=== PATIENT | female | born 1945 | race Caucasian/White ===

== ENCOUNTER 2018-05-24 10:00 | Inpatient (IN) ==
[~2018-05-24 10:00] MED LIST: DEXTROSE 50% 25 GM/50 ML SYRINGE IV PRN; GLUCAGON 1 MG VIAL IM PRN; oxyCODONE/ACETAMINOPHEN 5-325 MG TABLET PO PRN
[2018-05-24] MEDS: ALBUTEROL 2.5 MG/3 ML NEB RESP TX SCH ×3 (15:31→19:08)
[2018-05-24] MEDS: MECLIZINE 25 MG TABLET PO SCH ×2 (16:11→21:32)
[2018-05-24] MEDS: ASPIRIN EC 81 MG TABLET PO SCH (16:11)
[2018-05-24] MEDS: ATORVASTATIN 10 MG TABLET PO SCH (16:13)
[2018-05-24] MEDS: METOPROLOL SUCCINATE XL 50 MG TABLET PO SCH (16:13)
[2018-05-24] MEDS: DILTIAZEM CD 300 MG CAPSULE PO SCH (16:13)
[2018-05-25] MEDS: ALBUTEROL 2.5 MG/3 ML NEB RESP TX SCH ×4 (00:20→20:10)
[2018-05-25 04:19] LABS: ABG Base Excess 6.7 MMOL/L (-2.5-2.5); ABG HCO3 30.5 MMOL/L (20-26); ABG Oxygen Saturation 98.4 % (95-100); ABG PCO2 38.7 MM HG (35-48); ABG PH 7.502 (7.35-7.45); ABG TCO2 27.2 MMOL/L (23-27); Allen Test Positive
[2018-05-25 05:14] LABS: INR 1.1; PT Patient Result 11.4 SECS
[2018-05-25 05:17] LABS: Basophils % 0.1 % (0.0-0.8); Eosinophils # 0.3 10*3/uL (0.0-0.87); Eosinophils % 3.2 % (0.00-10.9); Hematocrit 32.4 VOL% (35.7-47.0); Immature Granulocytes % 0.6 %; Immature Granulocytes Absolute 0.05 #; Lymphocytes # 0.9 10*3/uL (1.4-4.0); Lymphocytes % 10.2 % (21.3-54.2); Mean Corpuscular HGB Conc 30.9 GM/DL (32-36); Mean Corpuscular Hemoglobin 29 PG (27-34); Mean Corpuscular Volume 95.3 FL (87-102); Mean Platelet Volume 11.3 FL (9.6-12.0); Monocytes % 11.9 % (1.7-12.7); Neutrophils # 6.3 10*3/uL (1.4-7.4); Platelet Count 201 T/CUMM (130-400); Red Cell Distribution Width 16.6 % (9.3-17.3); White Blood Count 8.5 T/CUMM (4-12)
[2018-05-25 05:32] LABS: Albumin 2.8 G/DL (3.4-5.0); Bilirubin,Direct 0.68 MG/DL (0.0-0.20); Bilirubin,Total 1.7 MG/DL (0.2-1.0); Total Protein 6.4 G/DL (6.4-8.3)
[2018-05-25 05:37] LABS: Albumin 2.5 G/DL (3.4-5.0); Bilirubin,Total 1.4 MG/DL (0.2-1.0); Calcium 8.3 MG/DL (8.5-10.1); Osmolality,Calculated 307.1 MOS/KG (273-304); Potassium 3.1 MMOL/L (3.5-5.1); Total Protein 6.4 G/DL (6.4-8.3)
[2018-05-25 05:38] LABS: Free T4 (Free Thyroxine) 1.08 NG/DL (0.76-1.46); Thyroid Stimulating Hormone 4.34 uIU/ml (0.358-3.74)
[2018-05-25] MEDS: ATORVASTATIN 10 MG TABLET PO SCH (08:58)
[2018-05-25] MEDS: DILTIAZEM CD 300 MG CAPSULE PO SCH (08:59)
[2018-05-25] MEDS: METOPROLOL SUCCINATE XL 50 MG TABLET PO SCH (08:59)
[2018-05-25] MEDS: ASPIRIN EC 81 MG TABLET PO SCH (08:59)
[2018-05-25] MEDS: MECLIZINE 25 MG TABLET PO SCH ×3 (09:05→22:10)
[2018-05-25] MEDS: METOPROLOL TARTRATE 100 MG TABLET PO SCH ×2 (10:08→22:10)
[2018-05-25] MEDS: POTASSIUM CHLORIDE RIDER 10 MEQ in PREMIX 1 EACH IV PRN ×2 (14:54→18:32)
[2018-05-26] MEDS: ALBUTEROL 2.5 MG/3 ML NEB RESP TX SCH ×4 (02:02→19:25)
[2018-05-26 04:57] LABS: Blood Urea Nitrogen 69 MG/DL (7-18); Calcium 8.1 MG/DL (8.5-10.1); Glucose 92 MG/DL (74-106); Osmolality,Calculated 305.8 MOS/KG (273-304); Potassium 3.2 MMOL/L (3.5-5.1); Sodium 144 MMOL/L (136-145)
[2018-05-26 04:59] LABS: Troponin I 0.101 NG/ML (0.00-0.045)
[2018-05-26] MEDS: POTASSIUM CHLORIDE RIDER 10 MEQ in PREMIX 1 EACH IV PRN (06:11)
[2018-05-26] MEDS ORDERED: POTASSIUM CHLORIDE 20 MEQ TABLET PO ONE (08:57)
[2018-05-26] MEDS: MECLIZINE 25 MG TABLET PO SCH ×3 (10:01→20:55)
[2018-05-26] MEDS: DILTIAZEM CD 300 MG CAPSULE PO SCH (10:02)
[2018-05-26] MEDS: ASPIRIN EC 81 MG TABLET PO SCH (10:03)
[2018-05-26] MEDS: METOPROLOL TARTRATE 100 MG TABLET PO SCH ×2 (10:04→20:55)
[2018-05-26] MEDS: ATORVASTATIN 10 MG TABLET PO SCH (10:04)
[2018-05-26] MEDS: CHLORHEXIDINE 0.12% ORAL RINSE 60 ML BOTTLE SWISH/SPIT SCH ×2 (14:31→20:55)
[2018-05-26] MEDS ORDERED: CHLORHEXIDINE 4% SOLN 118 ML BOTTLE TOP SCH (15:00)
[2018-05-27] MEDS: ALBUTEROL 2.5 MG/3 ML NEB RESP TX SCH ×4 (01:00→19:20)
[2018-05-27 05:29] LABS: Osmolality,Calculated 300.8 MOS/KG (273-304); Potassium 3.5 MMOL/L (3.5-5.1)
[2018-05-27] MEDS ORDERED: CEFUROXIME INJ 1,500 MG in SYRINGE 1 EACH IV ONE (06:00)
[2018-05-27 08:06] LABS: Basophils % 0.2 % (0.0-0.8); Eosinophils # 0.2 10*3/uL (0.0-0.87); Hematocrit 33.8 VOL% (35.7-47.0); Hemoglobin 10.5 GM/DL (12.0-16.0); Immature Granulocytes % 0.3 %; Immature Granulocytes Absolute 0.02 #; Lymphocytes % 16.1 % (21.3-54.2); Mean Corpuscular HGB Conc 31.1 GM/DL (32-36); Mean Corpuscular Hemoglobin 30 PG (27-34); Mean Corpuscular Volume 95.8 FL (87-102); Mean Platelet Volume 11.1 FL (9.6-12.0); Monocytes # 0.8 10*3/uL (0.11-0.8); Monocytes % 12.5 % (1.7-12.7); Neutrophils # 4.3 10*3/uL (1.4-7.4); Neutrophils % 67.9 % (38.7-73.9); Platelet Count 229 T/CUMM (130-400); Red Blood Count 3.53 MC/CUMM (3.8-5.5); Red Cell Distribution Width 16.3 % (9.3-17.3); White Blood Count 6.3 T/CUMM (4-12)
[2018-05-27] MEDS ORDERED: ATORVASTATIN 40 MG TABLET PO SCH (09:17)
[2018-05-27] MEDS: MECLIZINE 25 MG TABLET PO SCH ×3 (09:53→21:25)
[2018-05-27] MEDS: METOPROLOL TARTRATE 100 MG TABLET PO SCH ×2 (09:54→21:25)
[2018-05-27] MEDS: DILTIAZEM CD 300 MG CAPSULE PO SCH (09:55)
[2018-05-27] MEDS: ASPIRIN EC 81 MG TABLET PO SCH (09:56)
[2018-05-27] MEDS: CHLORHEXIDINE 0.12% ORAL RINSE 60 ML BOTTLE SWISH/SPIT SCH ×2 (09:57→21:26)
[2018-05-27] MEDS: ISOSORBIDE MONONITRATE 30 MG TABLET PO SCH (10:14)
[2018-05-27] MEDS ORDERED: ATORVASTATIN 10 MG TABLET PO SCH (10:24)
[2018-05-27 10:49] LABS: Albumin 2.6 G/DL (3.4-5.0); Bilirubin,Direct 0.69 MG/DL (0.0-0.20); Bilirubin,Indirect 0.5 MG/DL (0.0-1.0); Bilirubin,Total 1.2 MG/DL (0.2-1.0); Total Protein 6.5 G/DL (6.4-8.3)
[2018-05-27] MEDS: ATORVASTATIN 10 MG TABLET PO SCH (10:50)
[2018-05-27] MEDS: CHLORHEXIDINE 4% SOLN 118 ML BOTTLE TOP SCH ×2 (13:15→21:25)
[2018-05-28] MEDS: ALBUTEROL 2.5 MG/3 ML NEB RESP TX SCH ×2 (01:03→07:46)
[2018-05-28 04:34] LABS: Eosinophils # 0.2 10*3/uL (0.0-0.87); Hematocrit 31.1 VOL% (35.7-47.0); Hemoglobin 9.6 GM/DL (12.0-16.0); Immature Granulocytes % 0.2 %; Immature Granulocytes Absolute 0.01 #; Lymphocytes # 0.9 10*3/uL (1.4-4.0); Lymphocytes % 14.2 % (21.3-54.2); Mean Corpuscular HGB Conc 30.9 GM/DL (32-36); Mean Corpuscular Hemoglobin 30 PG (27-34); Mean Platelet Volume 10.8 FL (9.6-12.0); Monocytes # 0.7 10*3/uL (0.11-0.8); Monocytes % 10.9 % (1.7-12.7); Neutrophils # 4.5 10*3/uL (1.4-7.4); Neutrophils % 71.7 % (38.7-73.9); Platelet Count 231 T/CUMM (130-400); Red Blood Count 3.24 MC/CUMM (3.8-5.5); Red Cell Distribution Width 16.1 % (9.3-17.3); White Blood Count 6.3 T/CUMM (4-12)
[2018-05-28] MEDS ORDERED: PAPAVERINE 60 MG/2 ML VIAL ONE (04:51)
[2018-05-28] MEDS ORDERED: VANCOMYCIN 1,000 MG VIAL ONE (04:51)
[2018-05-28 05:02] LABS: Calcium 7.9 MG/DL (8.5-10.1); Potassium 3.1 MMOL/L (3.5-5.1)
[2018-05-28] MEDS ORDERED: FAMOTIDINE 20 MG TABLET PO ONE (05:40)
[2018-05-28] MEDS ORDERED: SUFentanil 250 MCG/5 ML AMP ONE (05:52)
[2018-05-28] MEDS ORDERED: MIDAZOLAM 10 MG/2 ML VIAL ONE (05:52)
[2018-05-28] MEDS ORDERED: SODIUM CHLORIDE 0.9% 1,000 ML IV SCH (06:00)
[2018-05-28] MEDS ORDERED: ceFAZolin 1,000 MG in SYRINGE 1 EACH IV ONE (06:00)
[2018-05-28] MEDS: DILTIAZEM CD 300 MG CAPSULE PO SCH ×2 (06:02→09:00)
[2018-05-28] MEDS: ISOSORBIDE MONONITRATE 30 MG TABLET PO SCH ×2 (06:02→09:00)
[2018-05-28] MEDS: METOPROLOL TARTRATE 100 MG TABLET PO SCH ×2 (06:03→09:00)
[2018-05-28] MEDS: CHLORHEXIDINE 4% SOLN 118 ML BOTTLE TOP SCH ×2 (06:03→09:00)
[2018-05-28] MEDS ORDERED: ATORVASTATIN 40 MG TABLET PO SCH (07:32)
[2018-05-28 07:45] LABS: ABG Base Excess 3.9 MMOL/L (-2.5-2.5); ABG HCO3 27.3 MMOL/L (20-26); ABG Oxygen Saturation 99.2 % (95-100); ABG PCO2 36.4 MM HG (35-48); ABG PH 7.493 (7.35-7.45); ABG PO2 474.4 MM HG (80-95); ABG TCO2 28.4 MMOL/L (23-27); Glucose Heart Surgery 78 MG/DL (74-106); Hemoglobin Heart Surgery 9.8 G/DL (12.0-16.0); Ionized Calcium Arterial 1.03 MMOL/L (1.21-1.46); PCO2 Patient Temp Arterial 36.4 MMHG; PH Patient Temp Arterial 7.493; PO2 Patient Temp Arterial 474.4 MM HG; Patient Temperature 37 CELCIUS; Potassium Heart/CVR 2.7 MMOL/L (3.5-5.1); Sodium Heart/CVR 142 MMOL/L (135-145)
[2018-05-28 08:27] LABS: Apearance,Urine CLEAR (Clear); Bilirubin,Urine Negative (Negative); Blood, Urine Negative (Negative); Glucose,Urine (UA) Negative (Negative); Ketones,Urine Negative (Negative); Mucus,Urine Occasional /LPF (Occasional); Nitrite,Urine Negative (Negative); Protein,Urine Negative; RBC,Urine 1 /HPF (0-4); Squamous Epithelial Cell,Urine Occasional /HPF (0-10); Urine Color Yellow (Yellow); Urine Urobilinogen < 2.0 EU/DL (0.2-1.0); WBC,Urine 1 /HPF (0-6)
[2018-05-28] MEDS: ASPIRIN EC 81 MG TABLET PO SCH (09:00)
[2018-05-28] MEDS: CHLORHEXIDINE 0.12% ORAL RINSE 60 ML BOTTLE SWISH/SPIT SCH ×2 (09:00→21:13)
[2018-05-28] MEDS: MECLIZINE 25 MG TABLET PO SCH (09:00)
[2018-05-28 09:18] LABS: Hematocrit Heart Surgery 18.9 PERCENT (37-47); PCO2 Patient Temp Venous 29.5 MM HG; PH Patient Temp Venous 7.56; PO2 Patient Temp Venous 42.6 MM HG; Potassium Heart/CVR 3.9 MMOL/L (3.5-5.1); VBG Base Excess 4.3 MEQ/L (0-4); VBG HCO3 28.2 MEQ/L (24-28); VBG Oxygen Saturation 90.3 %; VBG PCO2 34.1 MMHG (41-51); VBG PH 7.514; VBG PO2 52.1 MMHG (17-40)
[2018-05-28] MEDS ORDERED: HEPARIN/NACL 0.9% 2 UNITS/ML 500 ML IV ONE (09:28)
[2018-05-28] MEDS ORDERED: SODIUM BICARBONATE 50 MEQ/50 ML VIAL IV ONE ×2 (09:30→10:51)
[2018-05-28] MEDS ORDERED: CALCIUM CHLORIDE 1,000 MG/10 ML SYRINGE IV ONE (09:30)
[2018-05-28] MEDS ORDERED: NITROPRUSSIDE 50 MG/2 ML VIAL ONE (09:30)
[2018-05-28] MEDS ORDERED: PHENYLEPHRINE DRIP 40 MG/250 ML PREMIX IV ONE (09:30)
[2018-05-28] MEDS ORDERED: POTASSIUM CHLORIDE RIDER 100 ML IV ONE (09:31)
[2018-05-28 09:58] LABS: Hematocrit Heart Surgery 18.7 PERCENT (37-47); Hemoglobin Heart Surgery 5.9 G/DL (12.0-16.0); PCO2 Patient Temp Venous 28.3 MM HG; PH Patient Temp Venous 7.582; PO2 Patient Temp Venous 40.5 MM HG; Potassium Heart/CVR 3.8 MMOL/L (3.5-5.1); VBG Base Excess 4.8 MEQ/L (0-4); VBG HCO3 28.7 MEQ/L (24-28); VBG Oxygen Saturation 89.4 %; VBG PCO2 32.7 MMHG (41-51); VBG PH 7.536; VBG PO2 49.5 MMHG (17-40)
[2018-05-28 10:15] LABS: Hematocrit Heart Surgery 21.5 PERCENT (37-47); Hemoglobin Heart Surgery 6.9 G/DL (12.0-16.0); PCO2 Patient Temp Venous 36.4 MM HG; PH Patient Temp Venous 7.486; PO2 Patient Temp Venous 39.7 MM HG; VBG Base Excess 3.9 MEQ/L (0-4); VBG HCO3 27.7 MEQ/L (24-28); VBG Oxygen Saturation 78.9 %; VBG PCO2 36.4 MMHG (41-51); VBG PH 7.486; VBG PO2 39.7 MMHG (17-40)
[2018-05-28] MEDS ORDERED: ALBUMIN 25% 25 GM/100 ML VIAL IV ONE (10:49)
[2018-05-28] MEDS ORDERED: PROTAMINE SULFATE 250 MG/25 ML VIAL IV ONE (10:51)
[2018-05-28] MEDS ORDERED: MANNITOL 100 GM/500 ML BAG IV ONE (10:51)
[2018-05-28] MEDS ORDERED: DEXTROSE 5% KCL 20 MEQ 20 MEQ/1,000 ML BAG IV ONE (10:51)
[2018-05-28] MEDS ORDERED: MAGNESIUM SULFATE 10 GM/20 ML VIAL IV ONE (10:51)
[2018-05-28] MEDS ORDERED: methylPREDNISolone SOD SUC 1,000 MG/8 ML VIAL ONE (10:52)
[2018-05-28] MEDS ORDERED: HEPARIN 10,000 UNIT/10 ML VIAL ONE (10:52)
[2018-05-28] MEDS ORDERED: FUROSEMIDE 20 MG/2 ML VIAL ONE (10:52)
[2018-05-28] MEDS ORDERED: POTASSIUM CHLORIDE 20 MEQ/10 ML VIAL ONE (10:53)
[2018-05-28 11:03] LABS: ABG Base Excess 0.5 MMOL/L (-2.5-2.5); ABG HCO3 24.9 MMOL/L (20-26); ABG Oxygen Saturation 99.4 % (95-100); ABG PCO2 40.5 MM HG (35-48); ABG PH 7.402 (7.35-7.45); ABG TCO2 23.6 MMOL/L (23-27); Glucose Heart Surgery 171 MG/DL (74-106); Hemoglobin Heart Surgery 7.7 G/DL (12.0-16.0); Ionized Calcium Arterial 1.23 MMOL/L (1.21-1.46); PCO2 Patient Temp Arterial 40.5 MMHG; PH Patient Temp Arterial 7.402; Patient Temperature 37 CELCIUS; Potassium Heart/CVR 3.6 MMOL/L (3.5-5.1); Sodium Heart/CVR 138 MMOL/L (135-145)
[2018-05-28] MEDS ORDERED: AMIODARONE 450 MG/9 ML VIAL IV ONE (11:24)
[2018-05-28] MEDS ORDERED: DOBUTamine 500 MG/250 ML PREMIX IV ONE ×2 (11:24→11:57)
[2018-05-28] MEDS ORDERED: DOBUTamine 500 MG/250 ML PREMIX IV PRN (11:45)
[2018-05-28] MEDS: SODIUM CHLORIDE 0.45% 1,000 ML IV SCH ×2 (11:45)
[2018-05-28] MEDS ORDERED: MORPHINE 4 MG/1 ML VIAL IV PRN (11:57)
[2018-05-28] MEDS ORDERED: MIDAZOLAM 2 MG/2 ML VIAL ONE ×2 (11:57)
[2018-05-28] MEDS ORDERED: INSULIN REGULAR 100 UNIT/ML IV ONE (11:57)
[2018-05-28] MEDS ORDERED: MIDAZOLAM 2 MG/2 ML VIAL IV PRN (11:57)
[2018-05-28] MEDS ORDERED: MAGNESIUM SULF RIDER 4 GM in PREMIX 1 EACH IV PRN (11:57)
[2018-05-28] MEDS ORDERED: ONDANSETRON 4 MG/2 ML VIAL IV PRN (11:57)
[2018-05-28] MEDS ORDERED: CALCIUM CHLORIDE 1,000 MG/10 ML SYRINGE IV PRN (11:57)
[2018-05-28] MEDS ORDERED: LACTATED RINGERS 250 ML IV PRN (11:57)
[2018-05-28] MEDS ORDERED: MAGNESIUM SULF RIDER 2 GM in PREMIX 1 EACH IV PRN (11:57)
[2018-05-28] MEDS ORDERED: PHENYLEPHRINE DRIP 40 MG/250 ML PREMIX IV PRN (11:57)
[2018-05-28] MEDS ORDERED: ACETAMINOPHEN 650 MG SUPP RECTAL PRN (11:57)
[2018-05-28] MEDS ORDERED: INSULIN REGULAR 100 UNIT/ML IV PRN (11:57)
[2018-05-28] MEDS ORDERED: VECURONIUM 10 MG VIAL IV PRN ×2 (11:57)
[2018-05-28] MEDS ORDERED: NITROPRUSSIDE 100 MG in DEXTROSE 5% 250 ML IV PRN (11:57)
[2018-05-28] MEDS ORDERED: SEVOFLURANE 1 UNIT/15 MINUTE INH ONE (11:57)
[2018-05-28] MEDS ORDERED: CALCIUM CHLORIDE 1,000 MG/10 ML VIAL IV ONE (11:57)
[2018-05-28] MEDS ORDERED: MIDAZOLAM 10 MG/2 ML VIAL IV PRN (11:57)
[2018-05-28] MEDS ORDERED: MORPHINE 10 MG/1 ML VIAL IV PRN (11:57)
[2018-05-28] MEDS ORDERED: DEXTROSE 50% 25 GM/50 ML SYRINGE IV PRN ×2 (11:57)
[2018-05-28] MEDS ORDERED: VECURONIUM 10 MG VIAL IV ONE (11:58)
[2018-05-28] MEDS ORDERED: ETOMIDATE 40 MG/20 ML VIAL IV ONE (11:58)
[2018-05-28] MEDS ORDERED: PHENYLEPHRINE 10 MG/1 ML VIAL IV ONE (11:58)
[2018-05-28] MEDS ORDERED: AMIODARONE 150 MG/3 ML VIAL ONE (11:58)
[2018-05-28] MEDS ORDERED: AMINOCAPROIC ACID 5,000 MG/20 ML VIAL ONE (11:58)
[2018-05-28 12:00] LABS: ABG Base Excess -0.2 MMOL/L (-2.5-2.5); ABG HCO3 24.3 MMOL/L (20-26); ABG Oxygen Saturation 99.5 % (95-100); ABG PCO2 34.5 MM HG (35-48); ABG PH 7.442 (7.35-7.45); ABG TCO2 21.8 MMOL/L (23-27); Glucose Heart Surgery 153 MG/DL (74-106); Hematocrit Heart Surgery 26.4 PERCENT (37-47); Hemoglobin Heart Surgery 8.5 G/DL (12.0-16.0); Potassium Heart/CVR 3.9 MMOL/L (3.5-5.1)
[2018-05-28 12:10] LABS: Eosinophils # 0.1 10*3/uL (0.0-0.87); Hematocrit 25.8 VOL% (35.7-47.0); Hemoglobin 8.2 GM/DL (12.0-16.0); Immature Granulocytes % 0.9 %; Immature Granulocytes Absolute 0.09 #; Lymphocytes # 0.7 10*3/uL (1.4-4.0); Lymphocytes % 6.5 % (21.3-54.2); Mean Corpuscular HGB Conc 31.8 GM/DL (32-36); Mean Corpuscular Hemoglobin 30 PG (27-34); Mean Corpuscular Volume 94.9 FL (87-102); Mean Platelet Volume 10.9 FL (9.6-12.0); Monocytes # 0.8 10*3/uL (0.11-0.8); Monocytes % 7.9 % (1.7-12.7); Neutrophils # 8.5 10*3/uL (1.4-7.4); Neutrophils % 83.7 % (38.7-73.9); Platelet Count 201 T/CUMM (130-400); Red Blood Count 2.72 MC/CUMM (3.8-5.5); Red Cell Distribution Width 15.9 % (9.3-17.3); White Blood Count 10.1 T/CUMM (4-12)
[2018-05-28] MEDS: POTASSIUM CHLORIDE RIDER 20 MEQ in PREMIX 1 EACH IV PRN ×3 (12:10→18:21)
[2018-05-28 12:18] LABS: Albumin 2.7 G/DL (3.4-5.0); Bilirubin,Total 1.6 MG/DL (0.2-1.0); Calcium 7.9 MG/DL (8.5-10.1); Osmolality,Calculated 295.1 MOS/KG (273-304); Total Protein 5.3 G/DL (6.4-8.3)
[2018-05-28 12:24] LABS: INR 1.3
[2018-05-28 12:34] LABS: CKMB % 10.4 %
[2018-05-28 12:38] LABS: Troponin I 4.78 NG/ML (0.00-0.045)
[2018-05-28] MEDS ORDERED: AMIODARONE INJ 100 MG in DEXTROSE 5% 100 ML IV ONE (12:57)
[2018-05-28] MEDS ORDERED: AMIODARONE INJ 450 MG in DEXTROSE 5% 241 ML IV SCH (13:15)
[2018-05-28] MEDS: ceFAZolin 1,000 MG in SYRINGE 1 EACH IV SCH ×2 (14:15→20:52)
[2018-05-28 15:07] LABS: ABG Base Excess 0.6 MMOL/L (-2.5-2.5); ABG HCO3 24.9 MMOL/L (20-26); ABG Oxygen Saturation 99.4 % (95-100); ABG PCO2 32.1 MM HG (35-48); ABG PH 7.472 (7.35-7.45); ABG TCO2 20.7 MMOL/L (23-27); Glucose Heart Surgery 173 MG/DL (74-106); Hematocrit Heart Surgery 36.7 PERCENT (37-47); Hemoglobin Heart Surgery 11.9 G/DL (12.0-16.0); Potassium Heart/CVR 3.8 MMOL/L (3.5-5.1)
[2018-05-28] MEDS: INSULIN REGULAR DRIP 100 ML IV SCH (15:13)
[2018-05-28] MEDS: ALBUMIN 5% 12.5 GM in PREMIX 1 EACH IV PRN ×4 (15:55→17:26)
[2018-05-28] MEDS ORDERED: NITROGLYCERIN DRIP 50 MG/250 ML BOTTLE IV PRN (16:57)
[2018-05-28 18:14] LABS: ABG Base Excess -1.4 MMOL/L (-2.5-2.5); ABG HCO3 23.3 MMOL/L (20-26); ABG Oxygen Saturation 99.4 % (95-100); ABG PCO2 36.6 MM HG (35-48); ABG PH 7.406 (7.35-7.45); ABG TCO2 21.1 MMOL/L (23-27); Glucose Heart Surgery 116 MG/DL (74-106); Potassium Heart/CVR 3.9 MMOL/L (3.5-5.1)
[2018-05-28] MEDS: POTASSIUM CHLORIDE RIDER 10 MEQ in PREMIX 1 EACH IV PRN (18:54)
[2018-05-28] MEDS ORDERED: FUROSEMIDE 40 MG/4 ML VIAL ONE (20:31)
[2018-05-28] MEDS ORDERED: FUROSEMIDE 40 MG/4 ML VIAL IV ONE (20:33)
[2018-05-28] MEDS ORDERED: FUROSEMIDE 40 MG/4 ML VIAL IV PRN (20:35)
[2018-05-28 21:06] LABS: ABG Base Excess -2.3 MMOL/L (-2.5-2.5); ABG HCO3 22.1 MMOL/L (20-26); ABG Oxygen Saturation 98.3 % (95-100); ABG PCO2 36.2 MM HG (35-48); ABG PH 7.403 (7.35-7.45); ABG PO2 152.4 MM HG (80-95); ABG TCO2 23.2 MMOL/L (23-27); Glucose Heart Surgery 130 MG/DL (74-106); Hemoglobin Heart Surgery 10.3 G/DL (12.0-16.0); Potassium Heart/CVR 4.6 MMOL/L (3.5-5.1)
[2018-05-28 21:26] LABS: CKMB % 9.9 %
[2018-05-29] MEDS: ceFAZolin 1,000 MG in SYRINGE 1 EACH IV SCH ×5 (02:14→21:49)
[2018-05-29 04:28] LABS: ABG Base Excess -2.4 MMOL/L (-2.5-2.5); ABG HCO3 22.4 MMOL/L (20-26); ABG PCO2 33.3 MM HG (35-48); ABG PH 7.417 (7.35-7.45); ABG TCO2 19.3 MMOL/L (23-27); Glucose Heart Surgery 135 MG/DL (74-106); Potassium Heart/CVR 3.9 MMOL/L (3.5-5.1)
[2018-05-29 04:29] LABS: Hematocrit Heart Surgery 33.2 PERCENT (37-47); Hemoglobin Heart Surgery 10.8 G/DL (12.0-16.0)
[2018-05-29 04:49] LABS: Basophils % 0.1 % (0.0-0.8); Hematocrit 32.8 VOL% (35.7-47.0); Hemoglobin 10.3 GM/DL (12.0-16.0); Immature Granulocytes % 0.8 %; Lymphocytes # 0.3 10*3/uL (1.4-4.0); Lymphocytes % 2.8 % (21.3-54.2); Mean Corpuscular HGB Conc 31.4 GM/DL (32-36); Mean Corpuscular Hemoglobin 30 PG (27-34); Mean Corpuscular Volume 94.3 FL (87-102); Mean Platelet Volume 11.1 FL (9.6-12.0); Monocytes # 0.5 10*3/uL (0.11-0.8); Monocytes % 4.2 % (1.7-12.7); Neutrophils % 92.1 % (38.7-73.9); Platelet Count 138 T/CUMM (130-400); Red Blood Count 3.48 MC/CUMM (3.8-5.5); Red Cell Distribution Width 16.3 % (9.3-17.3); White Blood Count 11.9 T/CUMM (4-12)
[2018-05-29] MEDS: POTASSIUM CHLORIDE RIDER 20 MEQ in PREMIX 1 EACH IV PRN (04:55)
[2018-05-29 05:09] LABS: Albumin 3.2 G/DL (3.4-5.0); Bilirubin,Direct 1.47 MG/DL (0.0-0.20); Bilirubin,Total 2.3 MG/DL (0.2-1.0); CKMB % 9.6 %; Calcium 8.1 MG/DL (8.5-10.1)
[2018-05-29 05:11] LABS: Troponin I 12.5 NG/ML (0.00-0.045)
[2018-05-29 05:16] LABS: Band Neutrophils 1 % (0-10); Hypochromasia 1+; Lymphocytes 1 % (20-55); Ovalocytes Slight; Platelet Estimate Normal; Segmented Neutrophils 96 % (50-85); Total Cells Counted 100
[2018-05-29] MEDS: POTASSIUM CHLORIDE RIDER 10 MEQ in PREMIX 1 EACH IV PRN (05:29)
[2018-05-29] MEDS: CHLORHEXIDINE 0.12% ORAL RINSE 60 ML BOTTLE SWISH/SPIT SCH ×2 (09:58→21:50)
[2018-05-29] MEDS: MANNITOL IV SCH ×2 (11:45→20:32)
[2018-05-29] MEDS: SODIUM CHLORIDE 0.45% 1,000 ML IV SCH ×2 (12:22→12:23)
[2018-05-29] MEDS: INSULIN REGULAR DRIP 100 ML IV SCH (12:23)
[2018-05-29] MEDS: SODIUM CHLORIDE 0.9% 1,000 ML IV SCH (12:30)
[2018-05-29 15:23] LABS: CKMB % 8.4 %
[2018-05-29 15:32] LABS: Troponin I 6.94 NG/ML (0.00-0.045)
[2018-05-30] MEDS ORDERED: ceFAZolin 1,000 MG in SYRINGE 1 EACH IV SCH (03:00)
[2018-05-30] MEDS: ceFAZolin 1,000 MG in SYRINGE 1 EACH IV SCH (03:02)
[2018-05-30 04:28] LABS: ABG Base Excess -0.5 MMOL/L (-2.5-2.5); ABG PH 7.488 (7.35-7.45); ABG TCO2 19.7 MMOL/L (23-27); Glucose Heart Surgery 146 MG/DL (74-106); Hematocrit Heart Surgery 32.7 PERCENT (37-47); Hemoglobin Heart Surgery 10.6 G/DL (12.0-16.0); Potassium Heart/CVR 3.3 MMOL/L (3.5-5.1)
[2018-05-30 04:41] LABS: Basophils % 0.1 % (0.0-0.8); Hematocrit 32.1 VOL% (35.7-47.0); Hemoglobin 10.2 GM/DL (12.0-16.0); Immature Granulocytes % 0.9 %; Immature Granulocytes Absolute 0.11 #; Lymphocytes # 0.3 10*3/uL (1.4-4.0); Lymphocytes % 2.4 % (21.3-54.2); Mean Corpuscular HGB Conc 31.8 GM/DL (32-36); Mean Corpuscular Hemoglobin 30 PG (27-34); Mean Corpuscular Volume 93.9 FL (87-102); Monocytes # 0.8 10*3/uL (0.11-0.8); Monocytes % 6.5 % (1.7-12.7); Neutrophils % 90.1 % (38.7-73.9); Platelet Count 111 T/CUMM (130-400); Red Blood Count 3.42 MC/CUMM (3.8-5.5); Red Cell Distribution Width 16.8 % (9.3-17.3); White Blood Count 12.3 T/CUMM (4-12)
[2018-05-30] MEDS: POTASSIUM CHLORIDE RIDER 20 MEQ in PREMIX 1 EACH IV PRN ×3 (04:42→09:42)
[2018-05-30] MEDS: MANNITOL IV SCH ×3 (04:42→20:29)
[2018-05-30 04:53] LABS: Calcium 8.4 MG/DL (8.5-10.1); Osmolality,Calculated 312.9 MOS/KG (273-304); Potassium 3.4 MMOL/L (3.5-5.1)
[2018-05-30 04:57] LABS: Bilirubin,Direct 0.72 MG/DL (0.0-0.20); Bilirubin,Total 1.7 MG/DL (0.2-1.0); Calcium 8.4 MG/DL (8.5-10.1); Osmolality,Calculated 314.7 MOS/KG (273-304); Potassium 3.4 MMOL/L (3.5-5.1); Total Protein 5.8 G/DL (6.4-8.3)
[2018-05-30 05:18] LABS: Anisocytosis Slight; Band Neutrophils 2 % (0-10); Lymphocytes 2 % (20-55); Microcytosis Slight; Segmented Neutrophils 94 % (50-85); Total Cells Counted 100
[2018-05-30 05:21] LABS: Burr Cells Slight
[2018-05-30 05:22] LABS: Platelet Estimate Adequate
[2018-05-30 06:49] VITALS: BP 134/61
[2018-05-30] MEDS: CHLORHEXIDINE 0.12% ORAL RINSE 60 ML BOTTLE SWISH/SPIT SCH ×2 (09:03→20:05)
[2018-05-30] MEDS: POTASSIUM CHLORIDE RIDER 10 MEQ in PREMIX 1 EACH IV PRN (10:52)
[2018-05-30] MEDS: INSULIN REGULAR 100 UNIT/ML SUBCUT SCH ×3 (12:13→20:35)
[2018-05-30] MEDS: SODIUM CHLORIDE 0.9% 1,000 ML IV SCH ×2 (13:27→20:31)
[2018-05-31] MEDS: INSULIN REGULAR 100 UNIT/ML SUBCUT SCH ×4 (00:24→11:43)
[2018-05-31] MEDS: MANNITOL IV SCH (04:16)
[2018-05-31 04:24] LABS: ABG Base Excess -3.8 MMOL/L (-2.5-2.5); ABG HCO3 21.3 MMOL/L (20-26); ABG Oxygen Saturation 98.9 % (95-100); ABG PCO2 35.7 MM HG (35-48); ABG PH 7.374 (7.35-7.45); ABG TCO2 18.4 MMOL/L (23-27)
[2018-05-31 04:43] LABS: Basophils % 0.2 % (0.0-0.8); Hematocrit 38.8 VOL% (35.7-47.0); Hemoglobin 11.8 GM/DL (12.0-16.0); Immature Granulocytes % 1.9 %; Immature Granulocytes Absolute 0.35 #; Lymphocytes # 0.5 10*3/uL (1.4-4.0); Lymphocytes % 2.8 % (21.3-54.2); Mean Corpuscular HGB Conc 30.4 GM/DL (32-36); Mean Corpuscular Hemoglobin 30 PG (27-34); Mean Corpuscular Volume 99.5 FL (87-102); Mean Platelet Volume 12.6 FL (9.6-12.0); Monocytes # 1.5 10*3/uL (0.11-0.8); Monocytes % 8.1 % (1.7-12.7); Neutrophils # 16.1 10*3/uL (1.4-7.4); Platelet Count 128 T/CUMM (130-400); Red Cell Distribution Width 17.8 % (9.3-17.3); White Blood Count 18.5 T/CUMM (4-12)
[2018-05-31 04:58] LABS: Calcium 8.6 MG/DL (8.5-10.1); Osmolality,Calculated 335.5 MOS/KG (273-304); Potassium 3.8 MMOL/L (3.5-5.1)
[2018-05-31 05:05] LABS: Albumin 2.7 G/DL (3.4-5.0); Bilirubin,Direct 0.74 MG/DL (0.0-0.20); Bilirubin,Total 1.3 MG/DL (0.2-1.0); Calcium 8.6 MG/DL (8.5-10.1); Potassium 3.7 MMOL/L (3.5-5.1); Total Protein 5.8 G/DL (6.4-8.3)
[2018-05-31 05:06] LABS: Osmolality,Calculated 335.5 MOS/KG (273-304)
[2018-05-31 05:14] LABS: Lymphocytes 2 % (20-55); Nucleated Red Blood Cells 1 (0-5); Platelet Estimate Decreased; Segmented Neutrophils 92 % (50-85); Total Cells Counted 100
[2018-05-31] MEDS: SODIUM CHLORIDE 0.9% 1,000 ML IV SCH (05:14)
[2018-05-31] MEDS ORDERED: DEXTROSE 5% 1,000 ML IV SCH (06:30)
[2018-05-31] MEDS: CHLORHEXIDINE 0.12% ORAL RINSE 60 ML BOTTLE SWISH/SPIT SCH (09:57)
== END 2018-05-31 14:54 | disposition expired | DRG 235 ==
LOC: N.TELES 15:02 → N.CVR 05-28 08:30 → N.ICU 05-30 11:17